=== PATIENT | male | born 1970 | race Two or more races ===

== ENCOUNTER 2020-04-29 09:35 | Outpatient (REF) | payer OTHER, SELFPAY ==
[2020-04-29 10:21] LABS: Hematocrit 47.9 % (42-52); Hemoglobin 16.5 g/dl (14.0-18.0); Mean Corpuscular HGB Conc 34.4 g/dl (31.0-36.0); Mean Corpuscular Hemoglobin 31.1 pg (27.0-33.0); Mean Corpuscular Volume 90.4 fL (80-98); Mean Platelet Volume 9.1 fL (9.4-12.4); Platelet Count 192 X10*3/uL (160-400); Red Cell Distribution Width 12.4 % (11.0-16.0); White Blood Count 6.7 X10*3/uL (4.8-10.8)
[2020-04-29 11:00] LABS: Prostate Specific Antigen 0.89 ng/mL (<0.05-4.0)
[2020-05-03 12:52] LABS: Testosterone, Total 261 ng/dL (250-1100)
== END 2020-04-29 09:36 | disposition home or self-care (01) ==
LOC: HO.LAB 09:35
PROVIDERS: PCP Internal Medicine; Visit Provider Urology
DX: E29.1 Testicular hypofunction (principal)
CPT/HCPCS: 36415; 84153; 84403; 85027

== ENCOUNTER 2020-06-27 18:17 | Emergency (ER) | payer OTHER, SELFPAY ==
[2020-06-27 18:48] VITALS: BP 116/71; PULSE 87; RESP 18; TEMP 37.3; O2SAT 95; BMI 27.4
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
== END 2020-06-27 19:47 | disposition home or self-care (01) ==
PROVIDERS: Emergency Provider Emergency Medicine; PCP Internal Medicine
DX: S39.92XA Unspecified injury of lower back, initial encounter (principal); M54.40 Lumbago with sciatica, unspecified side; Z79.899 Other long term (current) drug therapy; V43.52XA Car driver injured in collision with other type car in traffic accident, initial encounter; Y93.9 Activity, unspecified; Y92.410 Unspecified street and highway as the place of occurrence of the external cause; Y99.9 Unspecified external cause status; M79.604 Pain in right leg
CPT/HCPCS: 72100; 99283

== ENCOUNTER → 2021-05-13 12:31 | Outpatient (BNVA) | payer OTHER, SELFPAY | PROVIDERS: PCP Internal Medicine; Visit Provider Urology | DX: N52.9 Male erectile dysfunction, unspecified (principal); E29.1 Testicular hypofunction | CPT/HCPCS: 99212 ==

== ENCOUNTER → 2021-05-21 08:33 | Outpatient (BNVA) | payer SELFPAY | PROVIDERS: PCP Internal Medicine; Visit Provider Physician Assistant Medical | DX: Z02.79 Encounter for issue of other medical certificate (principal) ==

== ENCOUNTER 2021-11-04 08:57 | Outpatient (REF) | payer OTHER, SELFPAY ==
[2021-11-04 09:50] LABS: Hematocrit 47.4 % (42.0-52.0); Hemoglobin 16.4 g/dl (14.0-18.0); Mean Corpuscular HGB Conc 34.6 g/dl (31.0-36.0); Mean Corpuscular Hemoglobin 30.9 pg (27.0-33.0); Mean Corpuscular Volume 89.4 fL (80.0-98.0); Mean Platelet Volume 8.7 fL (9.4-12.4); Platelet Count 177 X10*3/uL (160-400); Red Cell Distribution Width 12.5 % (11.0-16.0); White Blood Count 6.5 X10*3/uL (4.8-10.8)
[2021-11-04 10:41] LABS: Prostate Specific Antigen 0.81 ng/mL (<0.05-4.0)
[2021-11-10 02:11] LABS: Testosterone, Total 259 ng/dL (250-1100)
== END 2021-11-04 08:58 | disposition home or self-care (01) ==
LOC: HO.LAB 08:57
PROVIDERS: PCP Internal Medicine; Visit Provider Urology
DX: Z12.5 Encounter for screening for malignant neoplasm of prostate (principal); E29.1 Testicular hypofunction
CPT/HCPCS: 36415; 84153; 84403; 85027

== ENCOUNTER → 2021-11-13 08:45 | Outpatient (BNVA) | payer OTHER, SELFPAY | PROVIDERS: PCP Internal Medicine; Visit Provider Urology | DX: N52.9 Male erectile dysfunction, unspecified (principal); N48.6 Induration penis plastica; E29.1 Testicular hypofunction | CPT/HCPCS: 99212 ==

== ENCOUNTER 2022-05-05 09:33 | Outpatient (REF) | payer OTHER, SELFPAY ==
[2022-05-05 10:45] LABS: Hematocrit 51.2 % (42.0-52.0); Hemoglobin 17.5 g/dl (14.0-18.0); Mean Corpuscular HGB Conc 34.2 g/dl (31.0-36.0); Mean Corpuscular Hemoglobin 31.2 pg (27.0-33.0); Mean Corpuscular Volume 91.3 fL (80.0-98.0); Mean Platelet Volume 9.3 fL (9.4-12.4); Platelet Count 227 X10*3/uL (160-400); Red Blood Count 5.61 X10*6/uL (4.60-5.80); Red Cell Distribution Width 12.4 % (11.0-16.0); White Blood Count 6.9 X10*3/uL (4.8-10.8)
[2022-05-05 11:25] LABS: Prostate Specific Antigen 1.04 ng/mL (<0.05-4.0)
[2022-05-10 09:52] LABS: Testosterone, Total 216 ng/dL (250-1100)
== END 2022-05-05 09:34 | disposition home or self-care (01) ==
LOC: HO.LAB 09:33
PROVIDERS: PCP Internal Medicine; Visit Provider Urology
DX: Z12.5 Encounter for screening for malignant neoplasm of prostate (principal); E29.1 Testicular hypofunction
CPT/HCPCS: 36415; 84153; 84403; 85027

== ENCOUNTER → 2022-05-15 09:51 | Outpatient (BNVA) | payer OTHER, SELFPAY | PROVIDERS: PCP Internal Medicine; Visit Provider Urology | DX: N48.6 Induration penis plastica (principal); E29.1 Testicular hypofunction; N52.9 Male erectile dysfunction, unspecified | CPT/HCPCS: 99212 ==

== ENCOUNTER 2022-11-04 09:42 | Outpatient (REF) | payer OTHER, SELFPAY ==
[2022-11-04 10:45] LABS: Hematocrit 50.9 % (42.0-52.0); Hemoglobin 17.1 g/dl (14.0-18.0); Mean Corpuscular HGB Conc 33.6 g/dl (31.0-36.0); Mean Corpuscular Hemoglobin 31.1 pg (27.0-33.0); Mean Corpuscular Volume 92.7 fL (80.0-98.0); Mean Platelet Volume 9.3 fL (9.4-12.4); Platelet Count 216 X10*3/uL (160-400); Red Blood Count 5.49 X10*6/uL (4.60-5.80); Red Cell Distribution Width 12.6 % (11.0-16.0); White Blood Count 6.6 X10*3/uL (4.8-10.8)
[2022-11-04 11:29] LABS: Prostate Specific Antigen 1.06 ng/mL (<0.05-4.0)
[2022-11-10 10:18] LABS: Testosterone, Total 284 ng/dL (250-1100)
== END 2022-11-04 09:43 | disposition home or self-care (01) ==
LOC: HO.LAB 09:42
PROVIDERS: PCP Internal Medicine; Visit Provider Urology
DX: Z12.5 Encounter for screening for malignant neoplasm of prostate (principal); E29.1 Testicular hypofunction
CPT/HCPCS: 36415; 84153; 84403; 85027

== ENCOUNTER → 2022-11-24 09:28 | Outpatient (BNVA) | payer OTHER, SELFPAY | PROVIDERS: PCP Internal Medicine; Visit Provider Urology | DX: E29.1 Testicular hypofunction (principal); N52.9 Male erectile dysfunction, unspecified; N48.6 Induration penis plastica | CPT/HCPCS: 99212 ==

== ENCOUNTER 2023-05-24 08:43 | Outpatient (REF) | payer OTHER, SELFPAY ==
[2023-05-24 09:18] LABS: Hematocrit 51.8 % (42.0-52.0); Hemoglobin 17.2 g/dl (14.0-18.0); Mean Corpuscular HGB Conc 33.2 g/dl (31.0-36.0); Mean Corpuscular Hemoglobin 31.3 pg (27.0-33.0); Mean Corpuscular Volume 94.4 fL (80.0-98.0); Mean Platelet Volume 9.3 fL (9.4-12.4); Platelet Count 209 X10*3/uL (160-400); Red Blood Count 5.49 X10*6/uL (4.60-5.80); Red Cell Distribution Width 12.5 % (11.0-16.0)
[2023-05-24 10:50] LABS: Prostate Specific Antigen 1.06 ng/mL (<0.05-4.0)
[2023-05-27 16:04] LABS: Testosterone, Total 343 ng/dL (250-1100)
== END 2023-05-24 08:44 | disposition home or self-care (01) ==
LOC: HO.LAB 08:43
PROVIDERS: PCP Internal Medicine; Visit Provider Urology
DX: Z12.5 Encounter for screening for malignant neoplasm of prostate (principal); N52.9 Male erectile dysfunction, unspecified
CPT/HCPCS: 36415; 84153; 84403; 85027

== ENCOUNTER → 2023-05-25 13:38 | Outpatient (BNVA) | payer SELFPAY | PROVIDERS: PCP Internal Medicine; Visit Provider Physician Assistant | DX: Z02.79 Encounter for issue of other medical certificate (principal) ==

== ENCOUNTER 2023-05-27 08:27 | Outpatient (AMB) | payer OTHER, SELFPAY ==
--- NOTE | 2023-05-27 08:46 | A.OFFVIS_ITS ---
Intake Intake Visit Reasons: 6m/PSA/Testosterone(Pending) Intake Note: Patient is Present for Telephone Follow Up labs Urology Med: Testosterone, Tadalafil Antibiotic Allergy:none Blood Thinner: None Allergies No Known Allergies Allergy (Verified 11/24/22 09:32) Medication List - Last Reconciled 05/27/23 by Jason Cobb MD cyclobenzaprine 5 mg PO Q8H PRN 5 days lidocaine 5% (Lidoderm) 1 patch topical DAILY PRN MDD remove after 12 hours needle (disp) 22 G (BD Regular Bevel Stevenson) As directed once a week pentoxifylline ER 400 mg PO BID 90 days syringe (disposable) (BD Bulk Syringe Slip Tip) As directed once a week tadalafil 20 mg PO ONCE PRN 30 days tadalafil 5 mg PO DAILY 90 days testosterone cypionate (Depo-Testosterone) 100 mg (0.5 mL) subcut QWEEK 4 weeks vitamin E (dl, acetate) 450 mg PO DAILY 90 days HPI HPI Comments History of Present Illness Details ?Eduin BLAKE is a very pleasant male. He is a patient of Dr Yeh. He is seen for the following urologic conditions. - hypogonadism - Peyronie's disease - erectile dysfunction Testosterone pending Reiterated that lab work should be done 2 weeks prior to appointment Peyronie's Maximum oral medications help with ED but erections only last 5 minutes Photographs show 30-40 degree left deviation with erection He has read about penile prosthetic as a possible solution A friend of his had undergone the procedure He would like to undergo penile prosthetic He is aware of the risks and benefits particularly initial 6 weeks Hypogonadism:? Lab day wed ? He presents today for?further evaluation and followup of his h ypogonadism..? Initial symptoms include? erectile dysfunction ?Yes ? decreased libido ?Yes ? change in mood/depression ?Yes ? in muscle size/strength ?Yes ? increased fatigue/malaise ?Yes ? increased abdominal fat ?No ? tender breasts/gynecomastia ?No ? hair loss ?No ? osteopenia ?No ? The onset of symptoms has been?over the past few years since 2012.? Erectile status?erections are not maintained until ejaculation.? Associate conditions include? chronic pain with opioid use ?cannabis use ? obstructive sleep apnea ?No ? CAD ?No ? obesity ?No ? stress - financial, family, employment ?No ? heavy alcohol or illicit drug use ?No ? Laboratory results?11/11 , baseline, testosterone 289, FSH 3.2 ?6. Stim test , FSH 7.0, , testosterone 450 ?03/14 , testosterone 821, , estradiol 58 ?09/12 , testosterone 740, , estradiol 41 ?09/13 T 685 , 03/16 389 Hct 50 PSA 1.0 ?09/14 851, Hct 51, PSA 1.0 - 05/17 T 260 PSA 0.95, 11/16 T 260 P 0.8, 05/19 216 P 1.0, 11/17 T 284 1.1 51 ? Current therapy includes?change to T.? Response to therapy has been?improved.? Diagnosis based on history and laboratory results?Hypogonadotrophic Hypogonadism, secondary to, external medications/substances.? Therapeutic plan?0.5 cc subcu weekly.? Erectile dysfunction setting of Peyronie's Daily tadalafil with on demand 20 mg Combination pentoxifylline and vitamin-E [facility] Medical History Pre-diabetes Surgical History History of back surgery Review of Systems Const Denies chills and Denies fever(s) Card Reports no additional complaints and Denies syncope Resp Denies cough GI Denies abdominal pain and Denies heartburn Reports as per HPI and Denies change in libido Neuro Denies syncope Psych Denies change in libido Endo Denies change in libido Physical Exam Const General: cooperative, healthy appearing, comfortable and no acute distress Orientation/consciousness: patient oriented x3 HEENT Face and sinus: Yes normal facial exam Mouth: moist mucous membranes Neck Neck: Yes normal visual inspection, Yes full ROM and Yes trachea midline Chest Chest palpation & inspection: normal inspection of the chest Resp Effort & Inspection: normal respiratory effort, able to speak in complete sentences and no respiratory distress GI Inspection: Yes normal to inspection Back/Spine/Pelvis Cervical Spine: normal cervical lordosis Thoracic/Lumbar Spine: thoracic and lumbar spine normal to inspection Skin General skin exam: no rashes or lesions noted Neuro General: patient oriented x3, gait normal, tone normal and moves all extremities Extrem General: Yes normal to inspection and Yes capillary refill normal Assessment & Plan Assessment & Plan (1) Peyronie's disease: Code(s): N48.6 - Induration penis plastica (2) Erectile dysfunction: Code(s): N52.9 - Male erectile dysfunction, unspecified (3) Hypogonadism in male: Code(s): E29.1 - Testicular hypofunction Plan Risks, benefits and alternatives to therapy were discussed. These include but are not limited to infection, bleeding, damage to local organs and tissues, need for further interventions. Anesthetic risks regarding cardiac arrhythmia, blood clots, and potential mortality were discussed. The patient understands the typical recovery time and the outpatient nature of the procedure. After consideration of these risks the patient gives full informed consent and they wish to move ahead with the procedure. Penile prosthetic placement Medications: Refilled testosterone cypionate (Depo-Testosterone) 100 mg (0.5 mL) subcut QWEEK 2 mL 5RF 4 weeks [id number] Patient Instructions: Imaging studies, laboratory and physical exam results were discussed and reviewed in detail. No major barriers to patient understanding were identified. An opportunity to ask questions regarding the treatment plan was provided. All questions were answered. The patient expressed understanding and agreement with the above treatment plan. The patient is aware they should contact our office by phone for worsening of their current condition or the appearance of new urologic symptoms. Compliance is encouraged with any medications and followup testing that is ordered. It is a privilege to participate in the urologic care of your patient. If you have any questions or concerns regarding treatment for the above conditions, or other urologic issues, please do not hesitate to contact me. The office telephone contact is [phone]. This note is constructed using voice recognition software. While every effort has been made to ensure accuracy timber treating tank operator errors may have been included. Yours sincerely, Dr Jason Cobb MD, [facility] - Urology Providers of Expert, Compassionate Care for the Genitourinary System Coding Level of Care Code Est Pt Level 4 (46438) Diagnoses Peyronie's disease N48.6 Erectile dysfunction N52.9 Hypogonadism in male E29.1
== END 2023-05-27 09:18 | disposition home or self-care (01) ==
PROVIDERS: Visit Provider Urology
DX: N48.6 Induration penis plastica (principal); N52.9 Male erectile dysfunction, unspecified; E29.1 Testicular hypofunction
CPT/HCPCS: 99214

== ENCOUNTER → 2023-05-27 08:27 | Outpatient (BNVA) | payer OTHER, SELFPAY | PROVIDERS: Visit Provider Urology | DX: N48.6 Induration penis plastica (principal); N52.9 Male erectile dysfunction, unspecified; E29.1 Testicular hypofunction | CPT/HCPCS: 99212 ==

== ENCOUNTER 2023-08-27 13:11 | Outpatient (AMB) | payer OTHER, SELFPAY ==
--- NOTE | 2023-08-27 13:12 | A.OFFVIS_ITS ---
Intake Intake Visit Reasons: H&P Penile Prosthetic Placement (Confirmed) Intake Note: Patient presents today for telehealth a follow-up Meds- Testosterone Allergies to Antibiotic- No Known Allergies Blood Thinner- None Patient stated he is not taking Tadalafil due to some side effects, he want to discuss it with the provider. Bleach Boiler Packer Required: No Allergies No Known Allergies Allergy (Verified 08/27/23 13:14) HPI HPI Comments History of Present Illness Details ?Eduin BLAKE is a very pleasant male. He is a patient of Dr Yeh. He is seen for the following urologic conditions. - hypogonadism - Peyronie's disease - erectile dysfunction Telemedicine Evaluation 15 min Consultation Leikr Ritu Video attempted Testosterone stable Upcoming surgery for erectile dysfunction with Peyronie's disease Reviewed expectations Continues to use penile pump to maximize length and girth Refill testosterone with needles Peyronie's Maximum oral medications help with ED but erections only last 5 minutes Photographs show 30-40 degree left deviation with erection He has read about penile prosthetic as a possible solution A friend of his had undergone the procedure He would like to undergo penile prosthetic He is aware of the risks and benefits particularly initial 6 weeks Hypogonadism:? Lab day wed ? He presents today for?further evaluation and followup of his hypogonadism..? Initial symptoms include? erectile dysfunction ?Yes ? decreased libido ?Yes ? change in mood/depression ?Yes ? in muscle size/strength ?Yes ? increased fatigue/malaise ?Yes ? increased abdominal fat ?No ? tender breasts/gynecomastia ?No ? hair loss ?No ? osteopenia ?No ? The onset of symptoms has been?over the past few years since 2012.? Erectile status?erections are not maintained until ejaculation.? Associate conditions include? chronic pain with opioid use ?cannabis use ? obstructive sleep apnea ?No ? CAD ?No ? obesity ?No ? stress - financial, family, employment ?No ? heavy alcohol or illicit drug use ?No ? Laboratory results?11/11 , baseline, testosterone 289, FSH 3.2 ?6. Stim test , FSH 7.0, , testosterone 450 ?03/14 , testosterone 821, estradiol 58 ?09/12 , testosterone 740, estradiol 41 ?09/13 T 685 , 03/16 389 Hct 50 PSA 1.0 ?09/14 851, Hct 51, PSA 1.0 - 05/17 T 260 PSA 0.95, 11/16 T 260 P 0.8, 05/19 216 P 1.0, 11/17 T 284 1.1 51, 05/20 343 ? Current therapy includes?change to T.? Response to therapy has been?improved.? Diagnosis based on history and laboratory results?Hypogonadotrophic Hypogonadism, secondary to, external medications/substances.? Therapeutic plan?0.5 cc subcu weekly.? Erectile dysfunction setting of Peyronie's Daily tadalafil with on demand 20 mg Combination pentoxifylline and vitamin-E PFSH Medical History Pre-diabetes Surgical History History of back surgery Review of Systems Const All systems reviewed & are unremarkable except as noted in HPI and below Reports no additional complaints Resp Reports no additional complaints GI Reports no additional complaints Reports as per HPI Musc Reports no additional complaints Physical Exam Telemedicine evaluation Appropriate responses Regular breathing rate and rhythm HEENT Head: Yes normal to inspection Ears: hearing grossly normal bilaterally Eyes General: appearance normal, both eyes and all related structures Neck Neck: Yes normal visual inspection Chest Chest palpation & inspection: normal inspection of the chest Resp Effort & Inspection: normal respiratory effort and able to speak in complete sentences Assessment & Plan Assessment & Plan (1) Erectile dysfunction: Code(s): N52.9 - Male erectile dysfunction, unspecified (2) Hypogonadism in male: Code(s): E29.1 - Testicular hypofunction (3) Peyronie's disease: Code(s): N48.6 - Induration penis plastica Plan Risks, benefits and alternatives to therapy were discussed. These include but are not limited to infection, bleeding, damage to local organs and tissues, need for further interventions. Anesthetic risks regarding cardiac arrhythmia, blood clots, and potential mortality were discussed. The patient understands the typical recovery time and the outpatient nature of the procedure. After consideration of these risks the patient gives full informed consent and they wish to move ahead with the procedure. penile prosthetic Medications: New needle (disp) 18 G (BD Regular Bevel Buckeye) As directed 30 ea 0RF E29.1 - Testicular hypofunction needle (disp) 22 G For testosterone injection weekly 30 ea 0RF E29.1 - Testicular hypofunction, E34.9 - Endocrine disorder, unspecified Refilled syringe (disposable) (BD Bulk Syringe Slip Tip) As directed once a week 50 ea 0RF E29.1 - Testicular hypofunction testosterone cypionate (Depo-Testosterone) 100 mg (0.5 mL) subcut QWEEK 4 weeks 2 mL 5RF [id number] Patient Instructions: Imaging studies, laboratory and physical exam results were discussed and reviewed in detail. No major barriers to patient understanding were identified. An opportunity to ask questions regarding the treatment plan was provided. All questions were answered. The patient expressed understanding and agreement with the above treatment plan. The patient is aware they should contact our office by phone for worsening of their current condition or the appearance of new urologic symptoms. Compliance is encouraged with any medications and followup testing that is ordered. It is a privilege to participate in the urologic care of your patient. If you have any questions or concerns regarding treatment for the above conditions, or other urologic issues, please do not hesitate to contact me. The office telephone contact is [phone]. This note is constructed using voice recognition software. While every effort has been made to ensure accuracy storage management consultant errors may have been included. Yours sincerely, Dr Jason Cobb MD, [facility] - Urology Providers of Expert, Compassionate Care for the Genitourinary System Telehealth Telehealth Location of provider rendering services: practice address Location of patient: address on file Patient Identification confirmed using: Name, : Yes Telehealth method: video Patient verbally consented to treatment: Yes Patient verbally consented to billing insurance company: Yes Patient informed of any privacy concerns related to visit: Yes Coding Level of Care Code Tele Est Pt Level 4 (87735) Diagnoses Erectile dysfunction N52.9 Hypogonadism in male E29.1 Peyronie's disease N48.6
== END 2023-08-27 13:35 | disposition home or self-care (01) ==
LOC: HO.HUSH 13:11
PROVIDERS: PCP Internal Medicine; Visit Provider Urology
DX: N52.9 Male erectile dysfunction, unspecified (principal); E29.1 Testicular hypofunction; N48.6 Induration penis plastica
CPT/HCPCS: 99213

== ENCOUNTER → 2023-08-27 13:11 | Outpatient (BNVA) | payer OTHER, SELFPAY | PROVIDERS: PCP Internal Medicine; Visit Provider Urology ==

== ENCOUNTER 2023-09-13 10:28 | Day surgery (SDC) | payer OTHER, SELFPAY ==
[2023-09-13] VITALS (7 sets, daily range): BP systolic 107–121; BP diastolic 63–70; PULSE 62–79; RESP 16–18; TEMP 36.1–36.3; O2SAT 96–99; BMI 27.6
--- NOTE | 2023-09-13 12:19 | P.OP_ITS ---
Operative Note Operative Note Date of Service: 09/13/23 Narrative: PreOperative Diagnosis: Erectile dysfunction Post Operative Diagnosis: Erectile dysfunction Procedure: - perineal nerve block - Placement of inflatable penile prosthetic - penile modeling Surgeon: Dr Jason Cobb Anesthesia: General Indications for procedure: Progressive erectile dysfunction in setting of Peyronie's disease Non responsive to oral or injectable medications. Maximum doses have been trialed. Has completed minimum of 6 weeks with penile vacuum pump in order to maximize potential placement. Is aware of the risks and benefits particularly related to mechanical failure, infection, loss of sensation. Procedure: After informed consent was verified the patient was brought to the operating room and placed in a supine position. Anesthesia was administered per protocol. The patient was shaved with clippers, and prepped with cholhexidine based solution. He was draped in a sterile fashion. Safety pause time-out performed. Standard antibiotic per modified 2019 guideline - IV vancomycin, gentamicin and fluoroquinolone. Montesinos catheter was placed on the field. Bladder was drained. [place] retractor with penile support was placed. Local antibiotics infiltrated horizontally 1,5cm proximal from the penoscrotal junction. Dorsal nerve block was placed inferior to the symphsis pubis in the midline and perineal/crural block was placed 1 fingerbreadth lateral to the midline angled at 45 degrees. A vertical scrotal incision was made and taken down to the tunica. Dissection was performed 1st on the left side and then on the right side to fully expose the proximal tunica of the corpora. Midline dissection was required to lift off the median attachments. At this point stay hooks were placed. A double row of 3-0 Vicryl stay sutures were placed through the distal tunica with 1cm spacing and labeled and marked bilaterally. Firstly on the left side an incision was made between the 2 rows of stay sutures through the tunica. This was approximately 2.5 cm in length. Using Hegar dilators the corporal body was dilated until it could accept a 13 Hegar dilator. A similar dissection was repeated on the right-hand side. After dilation each corporal body were washed with antibiotic normal saline. At this point the measuring device was introduced. Posterior measured at 11 cm and the front measured approximately 10 cm on the left. On the right 10 cm and 10 cm respectively. Based on the considerations from dilatation a penile prosthetic [employer] 18 cm CX with 3cm rear-tip extenders was used. Prior to prosthetic preparation using blunt dissection the right inguinal canal was palpated and using a Alessia clamp a small hole was punched in the posterior wall of the medial aspect of the inguinal canal. This was enlarged with the tip of the index finger. A flat reservoir was then placed through this hole into the preperitoneal, retro body wall space. This was filled with 75 cc and had minimal pressure. Clamps were placed. The introducer needle was used to thread the distal tip thread from the prost atic on the left side. This was then placed through the corporal defect and the needle advanced out through the glans of the penis. The prosthetic was then placed into the corporal body with the posterior aspect 1st using the enclosed pusher device. Once the posterior aspect had been introduced the anterior aspect was then introduced and brought out to the distal portion of the corpora. This was done 1st on the left side and then repeated on the right side. The prosthetic was then inflated approximately 80 cc of normal saline. Curvature was noted to the left and dorsal sides secondary to his Peyronie's disease. The prosthetic was deflated. Corporal sutures were snapped. The prosthetic was reinflated. Peyronie's molding was performed hinging at the point of maximal curvature which was approximately 2/3 distal. The curve was reduced proximally 75%. The penile prosthetic was deflated. The stay sutures through the tunica were then secured bilaterally The scrotum was irrigated. The excess tubing was cut. The ends were spiritzed with fluid. The compression fittings were placed and locked using the compression clamp. Effective length of tubing had been placed in the clamp and the 2 ends were now secured. The penile prosthetic was then refilled to ensure proper function and adequate flow between the reservoir and the prosthetic. Blunt dissection was performed to create a scrotal pocket. The pump was placed into the scrotal pocket and held using a clamp. 3-0 Vicryl was then used to secure tissue so the pump was kept in the dependent position. Prior to tissue reapproaximation a 7mm flat bulb drain was placed exiting from the left side. Tissue was reapproximated with 3-0 Vicryl in both the horizontal and then vertical fashion. At least 2 layers were placed over all tubing. Skin was closed using interrupted 4-0 chromic sutures. The wounds were cleaned and dried and a sterile dressing placed that kept the penis in an upright position pointing towards the chin. A modified Mummy dressing was placed. This was unable to be fully placed due to the anatomy of his scrotum. Two pumps had been placed into the prosthetic so it is partially filled. A cap was left on the Montesinos catheter to allow drainage for the next 48 hours. He tolerated the procedure well was extubated in operating room transferred in stable condition to the recovery area. Drains: Sixteen Vietnamese Montesinos catheter, 7 flat drain Pathology: None Drains: Sixteen Vietnamese Montesinos catheter, 7 flat drain
--- NOTE | 2023-09-13 12:42 | HO.ANESPROP2 ---
HPI - Anesthesia Eval Consult details Narrative: 53 yo male patient for Penile prosthesis placement PMFSH Active Problems Active Problems: All Active Problems (Updated 09/13/23 @ 12:42 by Conchis Katz MD) Peyronie's disease (Acute) Erectile dysfunction (Acute) Hypogonadism in male (Acute) H/o back surgery Past Medical History Medical History Pre-diabetes Family History Family history of problems with anesthesia: No Surgical History Surgical History History of back surgery History of Problems with Anesthesia: No Social History Social History Patient Tobacco Use Status: Never used Tobacco Use of substances other than those prescribed or required for medical reasons: Yes Are you DNR?: No Advance Directives: No Advance Directives Information Provided: Yes Meds Allergies Allergy/AdvReac Type Severity Reaction Status Date / Time No Known Allergies Allergy Verified 08/27/23 13:14 Active Medications: Current Medications Levofloxacin (Levaquin) 500 mg in 100 mls @ 100 mls/hr IV PREOP ONE Stop: 09/13/23 13:19 Vancomycin HCl 1,000 mg/ (Sodium Chloride) 270 mls @ 270 mls/hr IV POSTOP ONE Stop: 09/13/23 13:19 Gentamicin Sulfate/Sodium Chloride (Garamycin) 80 mg in 100 mls @ 100 mls/hr IV PREOP ONE Stop: 09/13/23 13:19 Pharmacy Consult (Consult Rx Vancomycin Dosing) 1 each MISCELLANE DAILY PRN PRN Reason: Consult order Exam Height,Weight and Vital Signs: Height 5 ft 11 in Weight 89.811 kg Last Vital Signs Temp 97.2 F 09/13/23 11:54 Pulse 64 09/13/23 11:54 Resp 18 09/13/23 11:54 BP 119/70 09/13/23 11:54 Pulse Ox 96 09/13/23 11:54 O2 Del Method Room Air 09/13/23 11:54 Airway Mallampati Class: II TM Dist: >3cm Neck ROM: Full Loose/Missing/Broken Teeth: No (Denies broken, loose, missing teeth) Heart: RRR Lungs: CTAB Assessment and Plan Assessment Anesthesia Assessment: Anesthesia Plan Discussed and Chart Reviewed Final Anesthetic Review Family History of Problems with Anesthesia: No History of Problems with Anesthesia: No NPO: Yes ASA Class: II Final Preanesthetic Review: No Changes in Pt Med Stat, Meds/Allgs Chart Reviewed, Consent Obtained/Reviewed and Anes Risks/Benef Reviewed Patient Risk: Low Procedure Risk: Low Assessment/Block/Sedation in SS: Assess/Block/Sedation-SS Anesthetic Plan Anesthetic Plan: GA Disposition: Standard PACU
--- NOTE | 2023-09-13 12:58 | MHC.SHP ---
Pre-Procedural Eval Section A - 24 Hr Update-Section A only Date of Service: 09/13/23 The patient is an INPATIENT: No Changes since office visit: No Cold of Flu in the past 2 weeks, No New Medical Problems, No Changes in Medication and No Patient answered all questions The patient has been examined within 24 hours of the surgical procedure. The History & Physical has been completed within 30 days and I have reviewed it.: Yes Section B - Complete if H&P > 30 days Chief Complaint: Male erectile dysfunction, unspecified Allergies: Allergies Allergy/AdvReac Type Severity Reaction Status Date / Time No Known Allergies Allergy Verified 08/27/23 13:14 Plan Diagnosis/Plan: Unchanged (penile prosthesis) I have reviewed the history and physical and performed a pertinent physical examination on my patient. No changes have occurred unless specified. Time Spent With Patient Time: Total time managing care of this patient today ____ minutes.
== END 2023-09-13 16:41 | disposition home or self-care (01) ==
PROVIDERS: PCP Internal Medicine; Visit Provider Urology
PROC: (CPT 54405; principal; 2023-09-13 12:00)
DX: N52.9 Male erectile dysfunction, unspecified (principal); N48.6 Induration penis plastica; E29.1 Testicular hypofunction; Z79.899 Other long term (current) drug therapy; Z98.890 Other specified postprocedural states
CPT/HCPCS: 54405; C1813; J0665; J1580; J1956; J2704; J3010; J3370; J3371

== ENCOUNTER → 2023-09-13 10:28 | Outpatient (BNV) | payer OTHER, SELFPAY | PROVIDERS: PCP Internal Medicine; Visit Provider Urology | DX: N52.9 Male erectile dysfunction, unspecified (principal) | CPT/HCPCS: 54405 ==

== ENCOUNTER → 2023-09-15 09:47 | Outpatient (BNVA) | payer OTHER, SELFPAY | PROVIDERS: PCP Internal Medicine; Visit Provider Urology ==

== ENCOUNTER 2023-09-24 13:37 | Outpatient (AMB) | payer OTHER, SELFPAY ==
--- NOTE | 2023-09-24 13:58 | A.OFFVIS_ITS ---
Intake Intake Visit Reasons: 2 wks- Penile Prosthesis follow up Intake Note: Patient is present for follow up Allergies No Known Allergies Allergy (Verified 08/27/23 13:14) HPI HPI Comments History of Present Illness Details ?Eduin BLAKE is a very pleasant male. He is a patient of Dr Yeh. He is seen for the following urologic conditions. - hypogonadism - Peyronie's disease - erectile dysfunction Two week follow-up penile prosthetic placement Discussed manipulation of pump in order to appreciate Healing Prosthetic fully deflated Has mild discomfort Four week follow-up for full teaching Did discuss degree of Peyronie's which required manipulation during surgery Peyronie's Maximum oral medications help with ED but erections only last 5 minutes Photographs show 30-40 degree left deviation with erection He has read about penile prosthetic as a possible solution A friend of his had undergone the procedure He would like to undergo penile prosthetic He is aware of the risks and benefits particularly initial 6 weeks Hypogonadism:? Lab day wed ? He presents today for?further evaluation and followup of his hypogonadism..? Initial symptoms include? erectile dysfunction ?Yes ? decreased libido ?Yes ? change in mood/depression ?Yes ? in muscle size/strength ?Yes ? increased fatigue/malaise ?Yes ? increased abdominal fat ?No ? tender breasts/gynecomastia ?No ? hair loss ?No ? osteopenia ?No ? The onset of symptoms has been?over the past few years since 2013.? Erectile status?erections are not maintained until ejaculation.? Associate conditions include? chronic pain with opioid use ?cannabis use ? obstructive sleep apnea ?No ? CAD ?No ? obesity ?No ? stress - financial, family, employment ?No ? heavy alcohol or illicit drug use ?No ? Laboratory results?11/11 , baseline, testosterone 289, FSH 3.2 ? Stim test , FSH 7.0, , testosterone 450 ?03/14 , testosterone 821, estradiol 58 ?09/12 , testosterone 740, estradiol 41 ?09/13 T 685 , 03/16 389 Hct 50 PSA 1.0 ?09/14 851, Hct 51, PSA 1.0 - 05/17 T 260 PSA 0.95, 11/16 T 260 P 0.8, 05/19 216 P 1.0, 11/17 T 284 1.1 51, 05/20 343 ? Current therapy includes?change to T.? Response to therapy has been?improved.? Diagnosis based on history and laboratory results?Hypogonadotrophic Hypogonadism, secondary to, external medications/substances.? Therapeutic plan?0.5 cc subcu weekly.? Erectile dysfunction setting of Peyronie's Daily tadalafil with on demand 20 mg Combination pentoxifylline and vitamin-E [facility] Medical History Pre-diabetes Surgical History History of back surgery Social History Patient Tobacco Use Status: Never used Tobacco Review of Systems Const Denies chills and Denies fever(s) Card Reports no additional complaints and Denies syncope Resp Denies cough GI Denies abdominal pain and Denies heartburn Reports as per HPI and Denies change in libido Neuro Denies syncope Psych Denies change in libido Endo Denies change in libido Physical Exam Const General: cooperative, healthy appearing, comfortable and no acute distress Orientation/consciousness: patient oriented x3 HEENT Face and sinus: Yes normal facial exam Mouth: moist mucous membranes Neck Neck: Yes normal visual inspection, Yes full ROM and Yes trachea midline Chest Chest palpation & inspection: normal inspection of the chest Resp Effort & Inspection: normal respiratory effort, able to speak in complete sentences and no respiratory distress GI Inspection: Yes normal to inspection Back/Spine/Pelvis Cervical Spine: normal cervical lordosis Thoracic/Lumbar Spine: thoracic and lumbar spine normal to inspection Skin General skin exam: no rashes or lesions noted Neuro General: patient oriented x3, gait normal, tone normal and moves all extremities Extrem General: Yes normal to inspection and Yes capillary refill normal Assessment & Plan Assessment & Plan (1) Hypogonadism in male: Code(s): E29.1 - Testicular hypofunction (2) Erectile dysfunction: Code(s): N52.9 - Male erectile dysfunction, unspecified (3) Peyronie's disease: Code(s): N48.6 - Induration penis plastica Plan Four week follow-up Patient Instructions: Imaging studies, laboratory and physical exam results were discussed and reviewed in detail. No major barriers to patient understanding were identified. An opportunity to ask questions regarding the treatment plan was provided. All questions were answered. The patient expressed understanding and agreement with the above treatment plan. The patient is aware they should contact our office by phone for worsening of their current condition or the appearance of new urologic symptoms. Compliance is encouraged with any medications and followup testing that is ordered. It is a privilege to participate in the urologic care of your patient. If you have any questions or concerns regarding treatment for the above conditions, or other urologic issues, please do not hesitate to contact me. The office telephone contact is [phone]. This note is constructed using voice recognition software. While every effort has been made to ensure accuracy supervisor network control operators errors may have been included. Yours sincerely, Dr Jason Cobb MD, [facility] - Urology Providers of Expert, Compassionate Care for the Genitourinary System Coding Level of Care Code Global (66893) Diagnoses Hypogonadism in male E29.1 Erectile dysfunction N52.9 Peyronie's disease N48.6
== END 2023-09-24 14:08 | disposition home or self-care (01) ==
PROVIDERS: PCP Internal Medicine; Visit Provider Urology
DX: E29.1 Testicular hypofunction (principal); N52.9 Male erectile dysfunction, unspecified; N48.6 Induration penis plastica
CPT/HCPCS: 99024

== ENCOUNTER → 2023-09-24 13:37 | Outpatient (BNVA) | payer OTHER, SELFPAY | PROVIDERS: PCP Internal Medicine; Visit Provider Urology | DX: E29.1 Testicular hypofunction (principal); N52.9 Male erectile dysfunction, unspecified; N48.6 Induration penis plastica; R73.03 Prediabetes | CPT/HCPCS: 99212 ==

== ENCOUNTER 2023-10-12 20:18 | Emergency (ER) | payer OTHER, SELFPAY ==
[2023-10-12 20:34] VITALS: BP 140/88; PULSE 101; RESP 16; TEMP 37.2; O2SAT 95; BMI 27.9
--- NOTE | 2023-10-12 20:38 | ED.GENADULT ---
HPI - General Adult General Chief complaint: Skin/Abscess/Foreign Body Stated complaint: left hand middle finger swollen Time Seen by Provider: 10/13/23 06:44 Source: patient Mode of arrival: ambulatory Limitations: no limitations History of Present Illness HPI narrative: This is a 53-year-old male history of Peyronie's disease, erectile dysfunction, hypogonadism presenting for evaluation of left middle finger cuticle swelling and pain ongoing for the past week. Patient reports he has been soaking his hand/finger in warm water and has been taking [id number] pain medicine with little to no relief. He also bought ampicillin sulbactam from a store which he has been taking with little to no relief. Patient tells me pain is 10/10 and throbbing. Denies fevers, chills, numbness, tingling, trauma to the finger. He tells me he may have a splinter to the affected region however he is unsure. Related Data Previous Rx's ?Medication ?Instructions ?Recorded cyclobenzaprine 5 mg tablet 5 mg PO Q8H PRN pain (scale score 06/27/20 7-10) 5 days #14 tabs lidocaine 5 % topical patch 1 patch topical DAILY PRN pain #30 06/27/20 (Lidoderm) ea vitamin E (dl, acetate) 450 mg 450 mg PO DAILY 90 days #90 caps 11/13/21 (1,000 unit) capsule tadalafil 20 mg tablet 20 mg PO ONCE PRN sexual activity 11/24/22 30 days #30 tabs tadalafil 5 mg tablet 5 mg PO DAILY sexual activity 90 11/24/22 days #90 tabs needle (disp) 22 G 22 gauge x 1 #50 ea 01/21/23 12 (BD Regular Bevel [place]) pentoxifylline 400 mg 400 mg PO BID 90 days #180 tabs 07/02/23 tablet,extended release needle (disp) 18 G 18 gauge x 1 #30 ea 08/27/23 12 (BD Regular Bevel [place]) needle (disp) 22 G 22 gauge x 1 #30 ea 08/27/23 12 syringe (disposable) 1 mL (BD Bulk #50 ea 08/27/23 Syringe Slip Tip) testosterone cypionate 200 mg/mL 100 mg (0.5 mL) subcut QWEEK 4 03/01/24 intramuscular oil weeks #2 mL (Depo-Testosterone) naproxen 500 mg tablet 500 mg PO BID PRN pain 7 days #14 09/13/23 tabs oxycodone-acetaminophen 5 mg-325 1 tab PO Q4H PRN pain (scale score 09/13/23 mg tablet 4-6) 7 days #30 tabs cephalexin 500 mg tablet 500 mg PO Q6H 7 days #28 tabs 10/13/23 doxycycline hyclate 100 mg capsule 100 mg PO BID 7 days #14 caps 10/13/23 morphine 15 mg immediate release 15 mg PO Q6H PRN pain 5 days #10 10/13/23 tablet tabs Allergies Allergy/AdvReac Type Severity Reaction Status Date / Time No Known Allergies Allergy Verified 10/12/23 20:38 Review of Systems Review of Systems: Yes all other systems are reviewed and are negative [facility] Past Medical History Attestation statement: The following information was validated with the patient. Source: old records reviewed and nursing notes reviewed Medical History Pre-diabetes Surgical History History of back surgery Social History Social History Alcohol intake: current Alcohol intake frequency: holidays/special occasions only Alcohol type: hard liquor Patient Tobacco Use Status: Never used Tobacco Smoked in Last 30 Days: No Use of substances other than those prescribed or required for medical reasons: Yes Substance Use Type: Marijuana Substance Use Frequency: Occasionally Advance Directives: No Advance Directives Information Provided: No Physical Exam ED Vital Signs: Vital Signs - 24 hr 10/12/23 20:34 10/13/23 05:26 Temperature 98.9 F 97.6 F Pulse Rate 101 H 84 Respiratory Rate 16 17 Blood Pressure 140/88 H 116/82 Pulse Oximetry 95 95 Oxygen Delivery Method Room Air Room Air BMI result Body Mass Index 27.9 vss Appearance: Alert.? Oriented X3.? No acute distress.? Head: Normocephalic, atraumatic, no step-offs or deformities Eyes: Pupils equal, round and reactive to light.? CVS: ?Pulses normal.? Respiratory: No respiratory distress.? Abdomen: Soft and nontender.? Skin: Skin warm and dry.? Normal skin color.? Normal skin turgor.? Extremities: 5/5 strength to bilateral upper and lower extremities, L middle finger paronychia with abscess + swelling to left middle finger. 2+ radial pulses equal and b/l. Normal sensation distally. Cap refil <2 seconds to b/l UE digitis. Full painless range of motion to all fingers. Neuro: Oriented X 3.? No motor deficit.? No sensory deficit. Course Course Course Narrative: RME- 53 year old male presents for evaluation of left middle finger swelling. He reports that he got a splinter in the area about a week ago. The area is now red, swollen and painful. On exam, the patient has a paronychia. Reevaluation(s) Reevaluation #1: Fine needle aspiration done, large amount of purulence expressed about 5 cc. Patient tolerated procedure well. Patient unsure of tetanus shot status therefore will give him a Boostrix shot at this time. Educated patient on diagnosis and treatment plan, answered all question, patient verbalizes understanding. At this time patient will be discharged home, advised to return with new or worsening symptoms. Educated on worrisome signs and symptoms and when to return. At this time I feel comfortable discharge home. Time: 07:43 Medical Decision Making Medical Decision Making MDM Narrative: 53-year-old male presents with paronychia to left middle finger times a week. Physical exam with paronychia and abscess with overlying cellulitis Plan at this time incision and drainage. This is likely paronychia with overlying cellulitis and abscess. Unlikely septic joint, felon. No signs of neurovascular compromise or acute threat to limb. No signs of streaking up arm. Differential Diagnosis Differential Diagnoses: The differential diagnosis associated with the presentation includes This is likely paronychia with overlying cellulitis and abscess. Unlikely septic joint, felon. No signs of neurovascular compromise or acute threat to limb. No signs of streaking up arm. Admission/Observation Consideration of admission/observation: Escalation of care including admission/observation considered Unlikely External Record Review External record reviewed: Inpatient record, Office record, Outpatient record, Prior outpatient labs, Prior outpatient radiology, Primary care record and Outside ED record Prescription Management I considered prescription management with: Pain Medication (Morphine, safe narcotic discussion with patient) and Antibiotic Chronic Conditions Patient?s care impacted by: Other (Obesity, prediabetic) Critical Care Time Critical Care Time Critical Care Time: Yes Total Critical Care Time: 35 Attestation: I attest to this time spent taking care of the patient, doing a procedure, re-evaluating after pain meds. Discharge Plan Discharge Clinical Impression: Paronychia of finger, Cellulitis, Retained foreign body Patient Disposition: Home, Self-Care Instructions: Paronychia (ED), Cellulitis (ED), Warm Compress or Soak (ED) Additional Instructions: Take your medications as prescribed. If you were prescribed antibiotics today, it is important that you take your medication to their entirety, do not skip any doses, do not finish them early. Follow-up with your primary care provider this week. Return to the emergency department with new or worsening symptoms. Such as fevers, chills, chest pain, shortness of breath, nausea, vomiting, dizziness, headache, vision changes, lethargy In case of emergency call 911 A narcotic has been sent to your pharmacy please take this as prescribed. Do not take more than the prescribed dose. Narcotic medications can cause addiction. Please do not mix them with alcohol. Do not take them while driving or operating machinery. Do not take them with any other narcotics. Do not share them with friends or family. They can cause constipation. Take them only for severe pain. Prescriptions: New doxycycline hyclate 100 mg capsule 100 mg PO BID 7 Days Qty: 14 0RF cephalexin 500 mg tablet 500 mg PO Q6H 7 Days Qty: 28 0RF morphine 15 mg tablet 15 mg PO Q6H PRN (Reason: pain) 5 Days Qty: 10 0RF Rx Instructions: Partial Fill upon patient request. No Action (DME) BD Regular Bevel [place] 22 gauge x 1 1/2 needle See Rx Instructions .MEDSUPPLY Qty: 50 0RF Rx Instructions: As directed once a week pentoxifylline 400 mg tablet extended release 400 mg PO BID 90 Days Qty: 180 1RF Rx Instructions: administer with meals lidocaine [Lidoderm] 5 % adhesive patch,medicated 1 patch topical DAILY MDD remove after 12 hours PRN (Reason: pain) Qty: 30 0RF Rx Instructions: leave on most painful area for up to 12 hrs cyclobenzaprine 5 mg tablet 5 mg PO Q8H PRN (Reason: pain (scale score 7-10)) 5 Days Qty: 14 0RF oxycodone-acetaminophen 5-325 mg tablet 1 tab PO Q4H PRN (Reason: pain (scale score 4-6)) 7 Days Qty: 30 0RF Rx Instructions: Partial Fill upon patient request. naproxen 500 mg tablet 500 mg PO BID PRN (Reason: pain) 7 Days Qty: 14 0RF vitamin E (dl, acetate) 450 mg (1,000 unit) capsule 450 mg PO DAILY 90 Days Qty: 90 1RF tadalafil 5 mg tablet 5 mg PO DAILY 90 Days Qty: 90 1RF tadalafil 20 mg tablet 20 mg PO ONCE PRN (Reason: sexual activity) 30 Days Qty: 30 0RF Rx Instructions: On demand medication take 60 minutes before intended activity (DME) BD Bulk Syringe Slip Tip 1 mL syringe See Rx Instructions .Route Qty: 50 0RF Rx Instructions: As directed once a week (DME) BD Regular Bevel [place] 18 gauge x 1 1/2 needle See Rx Instructions .MEDSUPPLY Qty: 30 0RF Rx Instructions: As directed (DME) needle (disp) 22 G 22 gauge x 1 1/2 needle See Rx Instructions .MEDSUPPLY Qty: 30 0RF Rx Instructions: For testosterone injection weekly testosterone cypionate [Depo-Testosterone] 200 mg/mL oil 100 mg subcut QWEEK 28 Days Qty: 2 5RF Referrals: Rao,Melinda Velasquez MD [Primary Care Provider] - 2 days Stand Alone Forms: Work/School Release Print Language: Chinese
[2023-10-13 05:26] VITALS: BP 116/82; PULSE 84; RESP 17; TEMP 36.4; O2SAT 95
[2023-10-13] MEDS: Acetaminophen 325 MG TABLET 975 MG PO (07:44)
[2023-10-13] MEDS: Morphine Sulfate Immed Release 15 MG TABLET PO (07:44)
[2023-10-13] MEDS: Diphth,Pertus(ACell),Tet Adult 0.5 ML SYRINGE IM (07:45)
[2023-10-13 08:06] VITALS: BP 116/82; PULSE 84; RESP 17; TEMP 36.4; O2SAT 95
[2023-10-13] MEDS: Bacitracin Oint 0.9 GM PACKET 1 APPL TOPICAL (08:06)
== END 2023-10-13 08:07 | disposition home or self-care (01) ==
PROVIDERS: Emergency Provider Emergency Medicine; PCP Internal Medicine
DX: S60.512A Abrasion of left hand, initial encounter (principal); L03.012 Cellulitis of left finger; X58.XXXA Exposure to other specified factors, initial encounter; Y93.9 Activity, unspecified; Y92.9 Unspecified place or not applicable; Y99.8 Other external cause status; Z23 Encounter for immunization
CPT/HCPCS: 90471; 90715; 99284

== ENCOUNTER 2023-10-22 12:40 | Outpatient (AMB) | payer OTHER, SELFPAY ==
--- NOTE | 2023-10-22 12:53 | MHC.OFFVIS ---
Intake Visit Reasons: 1m follow up Intake Note: Patient is Present for Follow Up Urology Medication: Tadalafil, Testosterone Pentoxifylline Antibiotic Allergies: None Blood Thinners:None Allergies No Known Allergies Allergy (Verified 10/12/23 20:38) HPI Comments Details: ?Eduin BLAKE is a very pleasant male. He is a patient of Dr Yeh. He is seen for the following urologic conditions. - hypogonadism - Peyronie's disease - erectile dysfunction Six week follow-up penile prosthetic Instruction provided for use Continue testosterone use Six-month follow-up Peyronie's Maximum oral medications help with ED but erections only last 5 minutes Photographs show 30-40 degree left deviation with erection He has read about penile prosthetic as a possible solution A friend of his had undergone the procedure He would like to undergo penile prosthetic He is aware of the risks and benefits particularly initial 6 weeks Hypogonadism:? Lab day wed ? He presents today for?further evaluation and followup of his hypogonadism..? Initial symptoms include? erectile dysfunction ?Yes ? decreased libido ?Yes ? change in mood/depression ?Yes ? in muscle size/strength ?Yes ? increased fatigue/malaise ?Yes ? increased abdominal fat ?No ? tender breasts/gynecomastia ?No ? hair loss ?No ? osteopenia ?No ? The onset of symptoms has been?over the past few years since 2013.? Erectile status?erections are not maintained until ejaculation.? Associate conditions include? chronic pain with opioid use ?cannabis use ? obstructive sleep apnea ?No ? CAD ?No ? obesity ?No ? stress - financial, family, employment ?No ? heavy alcohol or illicit drug use ?No ? Laboratory results?11/11 , baseline, testosterone 289, FSH 3.2 ? Stim test , FSH 7.0, , testosterone 450 ?03/14 , testosterone 821, estradiol 58 ?09/12 , testosterone 740, estradiol 41 ?09/13 T 685 , 03/16 389 Hct 50 PSA 1.0 ?09/14 851, Hct 51, PSA 1.0 - 05/17 T 260 PSA 0.95, 11/16 T 260 P 0.8, 05/19 216 P 1.0, 11/17 T 284 1.1 51, 05/20 343 ? Current therapy includes?change to T.? Response to therapy has been?improved.? Diagnosis based on history and laboratory results?Hypogonadotrophic Hypogonadism, secondary to, external medications/substances.? Therapeutic plan?0.5 cc subcu weekly.? Erectile dysfunction setting of Peyronie's Daily tadalafil with on demand 20 mg Combination pentoxifylline and vitamin-E [facility] Medical History Pre-diabetes Surgical History History of back surgery Social History Alcohol intake: current Alcohol intake frequency: holidays/special occasions only Alcohol type: hard liquor Patient Tobacco Use Status: Never used Tobacco Substance Use Type: Marijuana Review of Systems Const Denies chills and Denies fever(s) Card Reports no additional complaints and Denies syncope Resp Denies cough GI Denies abdominal pain and Denies heartburn Reports as per HPI and Denies change in libido Neuro Denies syncope Psych Denies change in libido Endo Denies change in libido Physical Exam Const General: cooperative, healthy appearing, comfortable and no acute distress Orientation/consciousness: patient oriented x3 HEENT Face and sinus: Yes normal facial exam Mouth: moist mucous membranes Neck Neck: Yes normal visual inspection, Yes full ROM and Yes trachea midline Chest Chest palpation & inspection: normal inspection of the chest Resp Effort & Inspection: normal respiratory effort, able to speak in complete sentences and no respiratory distress GI Inspection: Yes normal to inspection Back/Spine/Pelvis Cervical Spine: normal cervical lordosis Thoracic/Lumbar Spine: thoracic and lumbar spine normal to inspection Skin General skin exam: no rashes or lesions noted Neuro General: patient oriented x3, gait normal, tone normal and moves all extremities Extrem General: Yes normal to inspection and Yes capillary refill normal Assessment & Plan Assessment & Plan (1) Peyronie's disease: Code(s): N48.6 - Induration penis plastica Category: Medical (2) Hypogonadism in male: Code(s): E29.1 - Testicular hypofunction Category: Medical Plan Three-month follow-up lab work Orders: Orders Prostate Specific Antigen 3 Months E29.1 - Testicular hypofunction Testosterone, Total 3 Months E29.1 - Testicular hypofunction Complete Blood Count no Diff 3 Months E29.1 - Testicular hypofunction Patient Instructions: Imaging studies, laboratory and physical exam results were discussed and reviewed in detail. No major barriers to patient understanding were identified. An opportunity to ask questions regarding the treatment plan was provided. All questions were answered. The patient expressed understanding and agreement with the above treatment plan. The patient is aware they should contact our office by phone for worsening of their current condition or the appearance of new urologic symptoms. Compliance is encouraged with any medications and followup testing that is ordered. It is a privilege to participate in the urologic care of your patient. If you have any questions or concerns regarding treatment for the above conditions, or other urologic issues, please do not hesitate to contact me. The office telephone contact is [phone]. This note is constructed using voice recognition software. While every effort has been made to ensure accuracy fabrication department supervisor errors may have been included. Yours sincerely, Dr Jason Cobb MD, [facility] - Urology Providers of Expert, Compassionate Care for the Genitourinary System Coding Level of Care Code Est Pt Level 3 (73415) Diagnoses Peyronie's disease N48.6 Hypogonadism in male E29.1
== END 2023-10-22 13:26 | disposition home or self-care (01) ==
PROVIDERS: PCP Internal Medicine; Visit Provider Urology
DX: N48.6 Induration penis plastica (principal); E29.1 Testicular hypofunction
CPT/HCPCS: 99024

== ENCOUNTER → 2023-10-22 12:40 | Outpatient (BNVA) | payer OTHER, SELFPAY | PROVIDERS: PCP Internal Medicine; Visit Provider Urology | DX: E29.1 Testicular hypofunction (principal); N52.9 Male erectile dysfunction, unspecified; N48.6 Induration penis plastica; Z79.899 Other long term (current) drug therapy | CPT/HCPCS: 99212 ==

== ENCOUNTER 2024-01-12 08:26 | Outpatient (REF) | payer OTHER, SELFPAY ==
[2024-01-12 08:56] LABS: Hematocrit 49.1 % (42.0-52.0); Hemoglobin 17.2 g/dl (14.0-18.0); Mean Corpuscular Hemoglobin 31.5 pg (27.0-33.0); Mean Corpuscular Volume 89.9 fL (80.0-98.0); Mean Platelet Volume 9.1 fL (9.4-12.4); Platelet Count 180 X10*3/uL (160-400); Red Blood Count 5.46 X10*6/uL (4.60-5.80); Red Cell Distribution Width 12.3 % (11.0-16.0); White Blood Count 5.5 X10*3/uL (4.8-10.8)
[2024-01-12 13:46] LABS: Prostate Specific Antigen 0.92 ng/mL (<0.05-4.0)
[2024-01-17 14:13] LABS: Testosterone, Total 126 ng/dL (250-1100)
== END 2024-01-12 08:27 | disposition home or self-care (01) ==
LOC: HO.LAB 08:26
PROVIDERS: PCP Internal Medicine; Visit Provider Urology
DX: E29.1 Testicular hypofunction (principal)
CPT/HCPCS: 36415; 84153; 84403; 85027

== ENCOUNTER 2024-01-21 11:03 | Outpatient (AMB) | payer OTHER, SELFPAY ==
--- NOTE | 2024-01-21 11:08 | A.OFFVIS_ITS ---
Intake Visit Reasons: 3M PSA/Testo(set) Intake Note: Patient is Present for Follow Up labs Urology Medication: Pentoxifylline, Tadalafil,Testosterone Antibiotic Allergies:None Blood Thinners:None Computer Network Specialist Required: No Allergies No Known Allergies Allergy (Verified 01/21/24 11:20) HPI Comments Details: ?Eduin BLAKE is a very pleasant male. He is a patient of Dr Yeh. He is seen for the following urologic conditions. - hypogonadism - Peyronie's disease - erectile dysfunction Has not used testosterone T1 26 Prescription provided Six-month follow-up labs Peyronie's Maximum oral medications help with ED but erections only last 5 minutes Photographs show 30-40 degree left deviation with erection He has read about penile prosthetic as a possible solution A friend of his had undergone the procedure He would like to undergo penile prosthetic He is aware of the risks and benefits particularly initial 6 weeks Hypogonadism:? Lab day wed ? He presents today for?further evaluation and followup of his hypogonadism..? Initial symptoms include? erectile dysfunction ?Yes ? decreased libido ?Yes ? change in mood/depression ?Yes ? in muscle size/strength ?Yes ? increased fatigue/malaise ?Yes ? increased abdominal fat ?No ? tender breasts/gynecomastia ?No ? hair loss ?No ? osteopenia ?No ? The onset of symptoms has been?over the past few years since 2013.? Erectile status?erections are not maintained until ejaculation.? Associate conditions include? chronic pain with opioid use ?cannabis use ? obstructive sleep apnea ?No ? CAD ?No ? obesity ?No ? stress - financial, family, employment ?No ? heavy alcohol or illicit drug use ?No ? Laboratory results?11/11 , baseline, testosterone 289, FSH 3.2 ? Stim test , FSH 7.0, , testosterone 450 ?03/14 , testosterone 821, estradiol 58 ?09/12 , testosterone 740, estradiol 41 ?09/13 T 685 , 03/16 389 Hct 50 PSA 1.0 ?09/14 851, Hct 51, PSA 1.0 - 05/17 T 260 PSA 0.95, 11/16 T 260 P 0.8, 05/19 216 P 1.0, 11/17 T 284 1.1 51, 05/20 343 ? Current therapy includes?change to T.? Response to therapy has been?improved.? Diagnosis based on history and laboratory results?Hypogonadotrophic Hypogonadism, secondary to, external medications/substances.? Therapeutic plan?0.5 cc subcu weekly.? Erectile dysfunction setting of Peyronie's Daily tadalafil with on demand 20 mg Combination pentoxifylline and vitamin-E [facility] Medical History Pre-diabetes Surgical History History of back surgery Social History Alcohol intake: current Alcohol intake frequency: holidays/special occasions only Alcohol type: hard liquor Patient Tobacco Use Status: Never used Tobacco Substance Use Type: Marijuana Review of Systems Const Denies chills and Denies fever(s) Card Reports no additional complaints and Denies syncope Resp Denies cough GI Denies abdominal pain and Denies heartburn Reports as per HPI and Denies change in libido Neuro Denies syncope Psych Denies change in libido Endo Denies change in libido Physical Exam Const General: cooperative, healthy appearing, comfortable and no acute distress Orientation/consciousness: patient oriented x3 HEENT Face and sinus: Yes normal facial exam Mouth: moist mucous membranes Neck Neck: Yes normal visual inspection, Yes full ROM and Yes trachea midline Chest Chest palpation & inspection: normal inspection of the chest Resp Effort & Inspection: normal respiratory effort, able to speak in complete sentences and no respiratory distress GI Inspection: Yes normal to inspection Back/Spine/Pelvis Cervical Spine: normal cervical lordosis Thoracic/Lumbar Spine: thoracic and lumbar spine normal to inspection Skin General skin exam: no rashes or lesions noted Neuro General: patient oriented x3, gait normal, tone normal and moves all extremities Extrem General: Yes normal to inspection and Yes capillary refill normal Assessment & Plan Assessment & Plan (1) Hypogonadism in male: Code(s): E29.1 - Testicular hypofunction Category: Medical (2) Erectile dysfunction: Code(s): N52.9 - Male erectile dysfunction, unspecified Category: Medical (3) Peyronie's disease: Code(s): N48.6 - Induration penis plastica Category: Medical Plan Three-month follow-up labs Orders: Orders Testosterone, Free/Total 3 Months E29.1 - Testicular hypofunction Patient Instructions: Imaging studies, laboratory and physical exam results were discussed and reviewed in detail. No major barriers to patient understanding were identified. An opportunity to ask questions regarding the treatment plan was provided. All questions were answered. The patient expressed understanding and agreement with the above treatment plan. The patient is aware they should contact our office by phone for worsening of their current condition or the appearance of new urologic symptoms. Compliance is encouraged with any medications and followup testing that is ordered. It is a privilege to participate in the urologic care of your patient. If you have any questions or concerns regarding treatment for the above conditions, or other urologic issues, please do not hesitate to contact me. The office telephone contact is [phone]. This note is constructed using voice recognition software. While every effort has been made to ensure accuracy chief quality officer errors may have been included. Yours sincerely, Dr Jason Cobb MD, [facility] - Urology Providers of Expert, Compassionate Care for the Genitourinary System Coding Level of Care Code Est Pt Level 3 (38021) Diagnoses Hypogonadism in male E29.1 Erectile dysfunction N52.9 Peyronie's disease N48.6
== END 2024-01-21 11:48 | disposition home or self-care (01) ==
PROVIDERS: PCP Internal Medicine; Visit Provider Urology
DX: E29.1 Testicular hypofunction (principal); N52.9 Male erectile dysfunction, unspecified; N48.6 Induration penis plastica
CPT/HCPCS: 99213

== ENCOUNTER → 2024-01-21 11:03 | Outpatient (BNVA) | payer OTHER, SELFPAY | PROVIDERS: PCP Internal Medicine; Visit Provider Urology | DX: E29.1 Testicular hypofunction (principal); N48.6 Induration penis plastica; N52.1 Erectile dysfunction due to diseases classified elsewhere | CPT/HCPCS: 99212 ==

== ENCOUNTER 2024-04-18 08:44 | Outpatient (REF) | payer OTHER, SELFPAY ==
[2024-04-22 15:04] LABS: Testosterone, Total 613 ng/dL (250-1100)
== END 2024-04-18 08:45 | disposition home or self-care (01) ==
LOC: HO.LAB 08:44
PROVIDERS: PCP Internal Medicine; Visit Provider Urology
DX: E29.1 Testicular hypofunction (principal)
CPT/HCPCS: 36415; 84402; 84403

== ENCOUNTER 2024-04-27 10:20 | Outpatient (AMB) | payer OTHER, SELFPAY ==
--- NOTE | 2024-04-27 10:36 | A.OFFVIS_ITS ---
Intake Visit Reasons: 3M/Testo(set) Intake Note: Patient is Present for Follow Up Testosterone Results Urology Medication: Penoxifylline, Tadalafil, Testosterone Antibiotic Allergies: None Blood Thinners: None Testosterone Results: 04/18/2024 Total Testosterone: 613 Free Testosterone: 168.0 Shield Runner Required: No Accompanied by: Self / Same As Patient Allergies No Known Allergies Allergy (Verified 01/21/24 11:20) HPI Comments Details: ?Eduin BLAKE is a very pleasant male. He is a patient of Dr Yeh. He is seen for the following urologic conditions. - hypogonadism - Peyronie's disease - erectile dysfunction Three-month follow-up Back on testosterone 04/20 T 620 FT 168 Good response Four month follow-up lab work Peyronie's Maximum oral medications help with ED but erections only last 5 minutes Photographs show 30-40 degree left deviation with erection He has read about penile prosthetic as a possible solution A friend of his had undergone the procedure He would like to undergo penile prosthetic Underwent penile prosthetic 09/18 Hypogonadism:? Lab day wed ? He presents today for?further evaluation and followup of his hypogonadism..? Initial symptoms include? erectile dysfunction ?Yes ? decreased libido ?Yes ? change in mood/depression ?Yes ? in muscle size/strength ?Yes ? increased fatigue/malaise ?Yes ? increased abdominal fat ?No ? tender breasts/gynecomastia ?No ? hair loss ?No ? osteopenia ?No ? The onset of symptoms has been?over the past few years since 2012.? Erectile status?erections are not maintained until ejaculation.? Associate conditions include? chronic pain with opioid use ?cannabis use ? obstructive sleep apnea ?No ? CAD ?No ? obesity ?No ? stress - financial, family, employment ?No ? heavy alcohol or illicit drug use ?No ? Laboratory results?11/11 , baseline, testosterone 289, FSH 3.2 ?6. Stim test , FSH 7.0, , testosterone 450 ?03/14 , testosterone 821, estradiol 58 ?09/12 , testosterone 740, estradiol 41 ?09/13 T 685 , 03/16 389 Hct 50 PSA 1.0 ?09/14 851, Hct 51, PSA 1.0 - 05/17 T 260 PSA 0.95, 11/16 T 260 P 0.8, 05/19 216 P 1.0, 11/17 T 284 1.1 51, 05/20 343 ? Current therapy includes?change to T.? Response to therapy has been?improved.? Diagnosis based on history and laboratory results?Hypogonadotrophic Hypogonadism, secondary to, external medications/substances.? Therapeutic plan?0.5 cc subcu weekly.? Erectile dysfunction setting of Peyronie's Daily tadalafil with on demand 20 mg Combination pentoxifylline and vitamin-E [facility] Medical History Pre-diabetes Surgical History History of back surgery Social History Alcohol intake: current Alcohol intake frequency: holidays/special occasions on ly Alcohol type: hard liquor Patient Tobacco Use Status: Never used Tobacco Substance Use Type: Marijuana Review of Systems Const Denies chills and Denies fever(s) Card Reports no additional complaints and Denies syncope Resp Denies cough GI Denies abdominal pain and Denies heartburn Reports as per HPI and Denies change in libido Neuro Denies syncope Psych Denies change in libido Endo Denies change in libido Physical Exam Const General: cooperative, healthy appearing, comfortable and no acute distress Orientation/consciousness: patient oriented x3 HEENT Face and sinus: Yes normal facial exam Mouth: moist mucous membranes Neck Neck: Yes normal visual inspection, Yes full ROM and Yes trachea midline Chest Chest palpation & inspection: normal inspection of the chest Resp Effort & Inspection: normal respiratory effort, able to speak in complete sentences and no respiratory distress GI Inspection: Yes normal to inspection Back/Spine/Pelvis Cervical Spine: normal cervical lordosis Thoracic/Lumbar Spine: thoracic and lumbar spine normal to inspection Skin General skin exam: no rashes or lesions noted Neuro General: patient oriented x3, gait normal, tone normal and moves all extremities Extrem General: Yes normal to inspection and Yes capillary refill normal Assessment & Plan Assessment & Plan (1) Erectile dysfunction: Code(s): N52.9 - Male erectile dysfunction, unspecified Category: Medical (2) Peyronie's disease: Code(s): N48.6 - Induration penis plastica Category: Medical Plan Four month follow-up lab work Orders: Orders Prostate Specific Antigen 4 Months E29.1 - Testicular hypofunction Complete Blood Count no Diff 4 Months E29.1 - Testicular hypofunction Testosterone, Total 4 Months E29.1 - Testicular hypofunction Patient Instructions: Imaging studies, laboratory and physical exam results were discussed and reviewed in detail. No major barriers to patient understanding were identified. An opportunity to ask questions regarding the treatment plan was provided. All questions were answered. The patient expressed understanding and agreement with the above treatment plan. The patient is aware they should contact our office by phone for worsening of their current condition or the appearance of new urologic symptoms. Compliance is encouraged with any medications and followup testing that is ordered. It is a privilege to participate in the urologic care of your patient. If you have any questions or concerns regarding treatment for the above conditions, or other urologic issues, please do not hesitate to contact me. The office telephone contact is [phone]. This note is constructed using voice recognition software. While every effort has been made to ensure accuracy radiation oncology nurse errors may have been included. Yours sincerely, Dr Jason Cobb MD, [facility] - Urology Providers of Expert, Compassionate Care for the Genitourinary System Coding Level of Care Code Est Pt Level 3 (68203) Diagnoses Erectile dysfunction N52.9 Peyronie's disease N48.6
== END 2024-04-27 11:25 | disposition home or self-care (01) ==
LOC: HO.HUSH 10:21
PROVIDERS: PCP Internal Medicine; Visit Provider Urology
DX: N52.9 Male erectile dysfunction, unspecified (principal); N48.6 Induration penis plastica
CPT/HCPCS: 99213

== ENCOUNTER → 2024-04-27 10:20 | Outpatient (BNVA) | payer OTHER, SELFPAY | PROVIDERS: PCP Internal Medicine; Visit Provider Urology | DX: N52.9 Male erectile dysfunction, unspecified (principal); N48.6 Induration penis plastica | CPT/HCPCS: 99212 ==

== ENCOUNTER 2024-08-23 09:15 | Outpatient (AMB) | payer OTHER, SELFPAY ==
--- NOTE | 2024-08-23 09:17 | A.OFFVIS_ITS ---
Intake Visit Reasons: 4m/PSA/Testo/CBC Intake Note: Patient is present for 4M.PSA/TESTO/CBC Urology Medication:NONE Antibiotic Allergy:NONE Blood Thinner:NONE Community Mental Health Social Worker Required: No Allergies No Known Allergies Allergy (Verified 08/23/24 09:18) HPI Comments Details: ?Eduin BLAKE is a very pleasant male. He is a patient of Dr Yeh. He is seen for the following urologic conditions. - hypogonadism - Peyronie's disease - erectile dysfunction Four month follow-up 04/20 T 620 FT 168 Testosterone steerable Prescription refilled Also would like tadalafil for glandular firmness Peyronie's Maximum oral medications help with ED but erections only last 5 minutes Photographs show 30-40 degree left deviation with erection Underwent penile prosthetic 09/18 Hypogonadism:? Lab day wed ? He presents today for?further evaluation and followup of his hypogonadism..? Initial symptoms include? erectile dysfunction ?Yes ? decreased libido ?Yes ? change in mood/depression ?Yes ? in muscle size/strength ?Yes ? increased fatigue/malaise ?Yes ? increased abdominal fat ?No ? tender breasts/gynecomastia ?No ? hair loss ?No ? osteopenia ?No ? The onset of symptoms has been?over the past few years since 2012.? Erectile status?erections are not maintained until ejaculation.? Associate conditions include? chronic pain with opioid use ?cannabis use ? obstructive sleep apnea ?No ? CAD ?No ? obesity ?No ? stress - financial, family, employment ?No ? heavy alcohol or illicit drug use ?No ? Laboratory results?11/11 , baseline, testosterone 289, FSH 3.2 ?6. Stim test , FSH 7.0, , testosterone 450 ?03/14 , testosterone 821, estradiol 58 ?09/12 , testosterone 740, estradiol 41 ?09/13 T 685 , 03/16 389 Hct 50 PSA 1.0 ?09/14 851, Hct 51, PSA 1.0 - 05/17 T 260 PSA 0.95, 11/16 T 260 P 0.8, 05/19 216 P 1.0, 11/17 T 284 1.1 51, 05/20 343 ? Current therapy includes?change to T.? Response to therapy has been?improved.? Diagnosis based on history and laboratory results?Hypogonadotrophic Hypogonadism, secondary to, external medications/substances.? Therapeutic plan?0.5 cc subcu weekly.? PFSH Medical History Pre-diabetes Surgical History History of back surgery Social History Alcohol intake: current Alcohol intake frequency: holidays/special occasions only Alcohol type: hard liquor Patient Tobacco Use Status: Never used Tobacco Substance Use Type: Marijuana Review of Systems Const Denies chills and Denies fever(s) Card Reports no additional complaints and Denies syncope Resp Denies cough GI Denies abdominal pain and Denies heartburn Reports as per HPI and Denies change in libido Neuro Denies syncope Psych Denies change in libido Endo Denies change in libido Physical Exam Const General: cooperative, healthy appearing, comfortable and no acute distress Orientation/consciousness: patient oriented x3 HEENT Face and sinus: Yes normal facial exam Mouth: moist mucous membranes Neck Neck: Yes normal visual inspection, Yes full ROM and Yes trachea midline Chest Chest palpation & inspection: normal inspection of the chest Resp Effort & Inspection: normal respiratory effort, able to speak in complete sentences and no respiratory distress GI Inspection: Yes normal to inspection Back/Spine/Pelvis Cervical Spine: normal cervical lordosis Thoracic/Lumbar Spine: thoracic and lumbar spine normal to inspection Skin General skin exam: no rashes or lesions noted Neuro General: patient oriented x3, gait normal, tone normal and moves all extremities Extrem General: Yes normal to inspection and Yes capillary refill normal Assessment & Plan Assessment & Plan (1) Erectile dysfunction: Code(s): N52.9 - Male erectile dysfunction, unspecified Category: Medical (2) Peyronie's disease: Code(s): N48.6 - Induration penis plastica Category: Medical (3) Hypogonadism in male: Code(s): E29.1 - Testicular hypofunction Category: Medical Plan Six-month follow-up lab work office Orders: Orders Testosterone, Total 6 Months E29.1 - Testicular hypofunction Complete Blood Count no Diff 6 Months E29.1 - Testicular hypofunction Prostate Specific Antigen 6 Months E29.1 - Testicular hypofunction Patient Instructions: This note is constructed using voice recognition software. While every effort has been made to ensure accuracy broadcast director operations errors may have been included. Imaging studies, laboratory and physical exam results were discussed and reviewed in detail. No major barriers to patient understanding were identified. An opportunity to ask questions regarding the treatment plan was provided. All questions were answered. The patient expressed understanding and agreement with the above treatment plan. The patient is aware they should contact our office by phone for worsening of their current condition or the appearance of new urologic symptoms. Compliance is encouraged with any medications and followup testing that is ordered. It is a privilege to participate in the urologic care of your patient. If you have any questions or concerns regarding treatment for the above conditions, or other urologic issues, please do not hesitate to contact me. The office t elephone contact is [phone]. Sincerely, Dr Jason Cobb MD, [facility] [place] - Urology Compassionate Specialist Care for the Genitourinary System Coding Level of Care Code Est Pt Level 3 (77532) Complex EM visit Add On G2211 Diagnoses Erectile dysfunction N52.9 Peyronie's disease N48.6 Hypogonadism in male E29.1
--- OUTSIDE RECORDS SUMMARY | 2024-08-23 10:22 | XMS_ITS | Clinical Summary ---
Author Organization [employer] [facility] Address [address] [place] [address] [address] [place] [address] Care Team Providers Care Printing Services Coordinator Name Role Phone Unavailable Primary Care Provider Unavailabl e Allergies No known active allergies Medications No known medications Social History Tobacco Use Types Packs/Day Years Used Date Smoking Tobacco: Never Smokeless Tobacco: Never Tobacco Cessation:Counseling Given: Not Answered Sex and Gender Information Value Date Recorded Sex Assigned at Male 04/27/2022 10:16 AM EDT Legal Sex Male 10:16 AM EDT Gender Identity Male 04/27/2022 10:16 AM EDT Sexual Orientation Straight 04/27/2022 10 :16 AM EDT Plan of Treatment Health Maintenance Due Date Last Done Comments CT Colonography 1968 Colonoscopy 1968 Colorectal Cancer Screening 1968 Dental Oral Exam 1968 Dental Prophylaxis 1968 Dental X-Ray: Bitewings 1968 Dental X-Ray: Full Mouth 1968 Depression Screening 1968 FIT DNA/Cologuard 1968 FIT 1968 FOBT 1968 HIV Screening 1968 Lipid Panel 1968 SDOH Screening 1968 Sigmoidoscopy 1968 Alcohol/Substance Use Screening 1980 Hepatitis C Screening 1986 Hepatitis B Vaccines (1 of 3 - 19+ 3-dose series) 1987 Pneumococcal Vaccine: 50+ Years (2 of 2 - PCV) 2018 09/16/2016 Zoster Vaccines (1 of 2) 2018 Tobacco Screening 10/22/2023 10/21/2022 COVID-19 Vaccine (3 - 2023-2 5 season) 2024 08/03/2021, 07/13/2021 Influenza Vaccine (#1) 2024 9, 05/24/2017 DTaP/Tdap/Td Vaccines (2 - T d or Tdap) 11/03/2025 11/04/2015 RSV Patients and Patients Aged 60 years or older (1 - 1-dose 75+ series) 2043 HIB Vaccines Aged Out No longer eligi ble based on patient's age to complete this topic HPV Vaccines Aged Out No longer eligi ble based on patient's age to complete this topic Hepatitis A Vaccines Aged Out No long er eligible based on patient's age to complete this topic IPV Vaccines Aged Out No longer eligi ble based on patient's age to complete this topic Meningococcal Vaccine Aged Out No viji annemarie eligible based on patient's age to complete this topic RSV under 20 months Aged Out No longe r eligible based on patient's age to complete this topic Rotavirus Vaccines Aged Out No longer eligible based on patient's age to complete this topic Insurance [facility] MEDICAID STAND ADULT
== END 2024-08-23 09:38 | disposition home or self-care (01) ==
PROVIDERS: PCP Internal Medicine; Visit Provider Urology
DX: N52.9 Male erectile dysfunction, unspecified (principal); N48.6 Induration penis plastica; E29.1 Testicular hypofunction
CPT/HCPCS: 99213; G2211

== ENCOUNTER → 2024-08-23 09:15 | Outpatient (BNVA) | payer OTHER, SELFPAY | PROVIDERS: PCP Internal Medicine; Visit Provider Urology | DX: N52.9 Male erectile dysfunction, unspecified (principal); N48.6 Induration penis plastica; E29.1 Testicular hypofunction | CPT/HCPCS: 99212 ==

== ENCOUNTER 2025-02-07 08:46 | Outpatient (REF) | payer OTHER, SELFPAY ==
--- OUTSIDE RECORDS SUMMARY | 2025-02-07 09:02 | XMS_ITS | Clinical Summary ---
Author Organization [employer] [facility] Address [address] [place] [address] [address] [place] [address] Care Team Providers Care Banking Pin Adjuster Name Role Phone Unavailable Primary Care Provider [...] Panel 1968 SDOH Screening 1968 Sigmoidoscopy 1968 Disability Screening 1968 Alcohol/Substance Use Screening 1980 Hepatitis C Screening 1986 Hepatitis B Vaccines (1 of 3 - 19+ 3-dose series) 1987 Pneumococcal Vaccine: 50+ Years (2 of 2 - PCV) 2018 09/16/2016 Zoster Vaccines (1 of 2) 2018 Tobacco Screening 10/22/2023 10/21/2022 COVID-19 Vaccine (3 - 2023-2 5 season) 2024 08/03/2021, 07/13/2021 Influenza Vaccine (#1) 2025 9, 05/24/2017 DTaP/Tdap/Td Vaccines (2 - T [...] patient's age to complete this topic Meningococcal B Vaccine Aged Out No l onger eligible based on patient's age to complete this topic Meningococcal Vaccine Aged Out No viji annemarie eligible based on patient's age to complete this topic RSV under 20 months Aged Out No longe r eligible based on patient's age to complete this topic Rotavirus Vaccines Aged Out No longer eligible based on patient's age to complete this topic Insurance [facility] MEDICAID STAND ADULT
== END 2025-02-07 08:47 | disposition home or self-care (01) ==
LOC: HO.LAB 08:46
PROVIDERS: PCP Internal Medicine; Visit Provider Urology
DX: E29.1 Testicular hypofunction (principal)
CPT/HCPCS: 36415; 84403

== ENCOUNTER 2025-02-14 08:37 | Outpatient (REF) | payer OTHER, SELFPAY ==
--- OUTSIDE RECORDS SUMMARY | 2025-02-14 09:19 | XMS_ITS | Clinical Summary ---
Author Organization [employer] [facility] Address [address] [place] [address] [address] [place] [address] Care Team Providers Care Tassel Maker Name Role Phone Unavailable Primary Care Provider [...] patient's age to complete this topic Insurance [facility] MEDICAID STAND ADULT
[2025-02-14 09:21] LABS: Hematocrit 52.7 % (42.0-52.0); Hemoglobin 17.9 g/dl (14.0-18.0); Mean Corpuscular HGB Conc 34.0 g/dl (31.0-36.0); Mean Corpuscular Hemoglobin 31.9 pg (27.0-33.0); Mean Corpuscular Volume 93.8 fL (80.0-98.0); NRBC Abs Auto 0.000 X10*3/uL (0.0-0.012); NRBC Pct Auto 0.0 /100WBC (0.0-0.2); Platelet Count 207 X10*3/uL (160-400); Red Blood Count 5.62 X10*6/uL (4.60-5.80); White Blood Count 7.1 X10*3/uL (4.8-10.8)
[2025-02-14 10:06] LABS: Prostate Specific Antigen 1.73 ng/mL (<0.05-4.0)
== END 2025-02-14 08:38 | disposition home or self-care (01) ==
LOC: HO.LAB 08:37
PROVIDERS: PCP Internal Medicine; Visit Provider Urology
DX: E29.1 Testicular hypofunction (principal)
CPT/HCPCS: 36415; 84153; 84403; 85027

== ENCOUNTER 2025-02-20 08:13 | Outpatient (AMB) | payer OTHER, SELFPAY ==
--- NOTE | 2025-02-20 08:16 | MHC.OFFVIS ---
Intake Visit Reasons: 6m/Testo Intake Note: Patient is present for a: 6mo follow up Urology Medication: tadalafil, testosterone Blood Thinner: none Quality Control Tester Required: No Accompanied by: Self / Same As Patient Allergies No Known Allergies Allergy (Verified 02/20/25 08:17) HPI Comments Details: ?Eduin BLAKE is a very pleasant male. He is a patient of Dr Yeh. He is seen for the following urologic conditions. - hypogonadism - Peyronie's disease - erectile dysfunction Six-month follow-up 04/20 T 620 FT 168, 02/19 458 1.7 Stable testosterone 0.75 subcutaneous weekly Remains on combination testosterone and tadalafil daily plus on demand Has complaints regarding performance of penile prosthetic Appears to have some malfunction with inflation Recommend revision Peyronie's Maximum oral medications help with ED but erections only last 5 minutes Photographs show 30-40 degree left deviation with erection Underwent penile prosthetic 09/18 Hypogonadism:? Lab day wed ? He presents today for?further evaluation and followup of his hypogonadism..? Initial symptoms include? erectile dysfunction ?Yes ? decreased libido ?Yes ? change in mood/depression ?Yes ? in muscle size/strength ?Yes ? increased fatigue/malaise ?Yes ? increased abdominal fat ?No ? tender breasts/gynecomastia ?No ? hair loss ?No ? osteopenia ?No ? The onset of symptoms has been?over the past few years since 2013.? Erectile status?erections are not maintained until ejaculation.? Associate conditions include? chronic pain with opioid use ?cannabis use ? obstructive sleep apnea ?No ? CAD ?No ? obesity ?No ? stress - financial, family, employment ?No ? heavy alcohol or illicit drug use ?No ? Laboratory results?11/11 , baseline, testosterone 289, FSH 3.2 ? Stim test , FSH 7.0, , testosterone 450 ?03/14 , testosterone 821, estradiol 58 ?09/12 , testosterone 740, estradiol 41 ?09/13 T 685 , 03/16 389 Hct 50 PSA 1.0 ?09/14 851, Hct 51, PSA 1.0 - 05/17 T 260 PSA 0.95, 11/16 T 260 P 0.8, 05/19 216 P 1.0, 11/17 T 284 1.1 51, 05/20 343 ? Current therapy includes?change to T.? Response to therapy has been?improved.? Diagnosis based on history and laboratory results?Hypogonadotrophic Hypogonadism, secondary to, external medications/substances.? Therapeutic plan?0.5 cc subcu weekly.? PFSH Medical History Pre-diabetes Surgical History History of back surgery Social History Alcohol intake: current Alcohol intake frequency: holidays/special occasions only Alcohol type: hard liquor Patient Tobacco Use Status: Never used Tobacco Substance Use Type: Marijuana Review of Systems Const Denies chills and Denies fever(s) Card Reports no additional complaints and Denies syncope Resp Denies cough GI Denies abdominal pain and Denies heartburn Reports as per HPI and Denies change in libido Neuro Denies syncope Psych Denies change in libido Endo Denies change in libido Physical Exam Const General: cooperative, healthy appearing, comfortable and no acute distress Orientation/consciousness: patient oriented x3 HEENT Face and sinus: Yes normal facial exam Mouth: moist mucous membranes Neck Neck: Yes normal visual inspection, Yes full ROM and Yes trachea midline Chest Chest palpation & inspection: normal inspection of the chest Resp Effort & Inspection: normal respiratory effort, able to speak in complete sentences and no respiratory distress GI Inspection: Yes normal to inspection Back/Spine/Pelvis Cervical Spine: normal cervical lordosis Thoracic/Lumbar Spine: thoracic and lumbar spine normal to inspection Skin General skin exam: no rashes or lesions noted Neuro General: patient oriented x3, gait normal, tone normal and moves all extremities Extrem General: Yes normal to inspection and Yes capillary refill normal Assessment & Plan Assessment & Plan (1) Erectile dysfunction: Code(s): N52.9 - Male erectile dysfunction, unspecified Category: Medical (2) Peyronie's disease: Code(s): N48.6 - Induration penis plastica Category: Medical Plan Risks, benefits and alternatives to therapy were discussed. These include but are not limited to infection, bleeding, damage to local organs and tissues, need for further interventions. Anesthetic risks regarding cardiac arrhythmia, blood clots, and potential mortality were discussed. The patient understands the typical recovery time and the outpatient nature of the procedure. After consideration of these risks the patient gives full informed consent and they wish to move ahead with the procedure. - revision penile prosthetic [employer] Orders: Orders Hematocrit 5 Months E29.1 - Testicular hypofunction Testosterone, Total 5 Months E29.1 - Testicular hypofunction Prostate Specific Antigen 5 Months E29.1 - Testicular hypofunction Medications: Refilled testosterone cypionate (Depo-Testosterone) 150 mg (0.75 mL) subcut QWEEK 4 mL 5RF 4 weeks [id number] Patient Instructions: This note is constructed using voice recognition software. While every effort has been made to ensure accuracy early childhood services coordinator errors may have been included. Imaging studies, laboratory and physical exam results were discussed and reviewed in detail. No major barriers to patient understanding were identified. An opportunity to ask questions regarding the treatment plan was provided. All questions were answered. The patient expressed understanding and agreement with the above treatment plan. The patient is aware they should contact our office by phone for worsening of their current condition or the appearance of new urologic symptoms. Compliance is encouraged with any medications and followup testing that is ordered. It is a privilege to participate in the urologic care of your patient. If you have any questions or concerns regarding treatment for the above conditions, or other urologic issues, please do not hesitate to contact me. The office telephone contact is [phone]. Sincerely, Dr Jason Cobb MD, [facility] - Urology Compassionate Specialist Care for the Genitourinary System Coding Level of Care Code Est Pt Level 4 (98114) Diagnoses Erectile dysfunction N52.9 Peyronie's disease N48.6
--- OUTSIDE RECORDS SUMMARY | 2025-02-20 08:19 | XMS_ITS | Clinical Summary ---
Author Organization [employer] [facility] Address [address] [place] [address] [address] [place] [address] Care Team Providers Care Data Management Name Role Phone Unavailable Primary Care Provider [...] patient's age to complete this topic Insurance [facility] MEDICAID STAND ADULT
== END 2025-02-20 09:19 | disposition home or self-care (01) ==
LOC: HO.HUSH 08:14
PROVIDERS: PCP Internal Medicine; Visit Provider Urology
DX: N52.9 Male erectile dysfunction, unspecified (principal); N48.6 Induration penis plastica
CPT/HCPCS: 99214

== ENCOUNTER → 2025-02-20 08:13 | Outpatient (BNVA) | payer OTHER, SELFPAY | PROVIDERS: PCP Internal Medicine; Visit Provider Urology | DX: N48.6 Induration penis plastica (principal); N52.9 Male erectile dysfunction, unspecified | CPT/HCPCS: 99212 ==

== ENCOUNTER → 2025-05-29 08:24 | Outpatient (BNVA) | payer SELFPAY | PROVIDERS: Visit Provider Registered Nurse | DX: Z02.79 Encounter for issue of other medical certificate (principal) ==

== ENCOUNTER 2025-06-25 08:50 | Outpatient (REF) | payer OTHER, SELFPAY ==
--- OUTSIDE RECORDS SUMMARY | 2025-06-25 08:58 | XMS_ITS | Clinical Summary ---
Author Organization [employer] [facility] Address [address] [place] [address] [address] [place] [address] Care Team Providers Care Supervisor Plating And Point Assembly Name Role Phone Unavailable Primary Care Provider [...] Screening 10/22/2023 10/21/2022 COVID-19 Vaccine (3 - 2024-2 6 season) 2025 08/03/2021, 07/13/2021 Influenza Vaccine (#1) 2025 9, [...]
[2025-06-25 09:28] LABS: Hematocrit 49.4 % (42.0-52.0); Hemoglobin 16.8 g/dl (14.0-18.0); Mean Corpuscular HGB Conc 34.0 g/dl (31.0-36.0); Mean Corpuscular Hemoglobin 32.2 pg (27.0-33.0); Mean Corpuscular Volume 94.8 fL (80.0-98.0); NRBC Abs Auto 0.000 X10*3/uL (0.0-0.012); NRBC Pct Auto 0.0 /100WBC (0.0-0.2); Platelet Count 209 X10*3/uL (160-400); Red Blood Count 5.21 X10*6/uL (4.60-5.80); White Blood Count 6.3 X10*3/uL (4.8-10.8)
[2025-06-25 10:20] LABS: Prostate Specific Antigen 1.09 ng/mL (<0.05-4.0)
== END 2025-06-25 08:51 | disposition home or self-care (01) ==
LOC: HO.LAB 08:50
PROVIDERS: PCP Internal Medicine; Visit Provider Urology
DX: E29.1 Testicular hypofunction (principal)
CPT/HCPCS: 36415; 84153; 84403; 85027